=== PATIENT | female | born 1980 | race American Indian/Alaskan Native ===

== ENCOUNTER 2016-09-02 09:00 | Inpatient (IN) | payer OTHER ==
[2016-09-02 09:55] LABS: Hematocrit 32.9 % (30.3-42.9); Hemoglobin 10.5 gm/dl (10.1-14.3); Mean Corpuscular HGB Conc 32 % (30-34); Platelet Count 281 K/mm3 (140-440); Red Blood Count 4.85 M/mm3 (3.65-5.03); White Blood Count 5.2 K/mm3 (4.5-11.0)
[2016-09-02 10:02] LABS: Mean Corpuscular Hemoglobin 22 pg (28-32); Mean Corpuscular Volume 68 fl (79-97)
--- NOTE | 2016-09-02 10:06 | Anesthesia Consultation ---
Anesthesia Consult and Med Hx Date of service: 09/02/16 - Airway Anesthetic Teeth Evaluation: Good ROM Head & Neck: Adequate Mental/Hyoid Distance: Adequate Mallampati Class: Class II Intubation Access Assessment: Probably Good - Pulmonary Exam CTA: Yes - Cardiac Exam Cardiac Exam: RRR - Pre-Operative Health Status ASA Pre-Surgery Classification: ASA2 - Gastrointestinal Hx Gastroesophageal Reflux Disease: Yes - Hematic Hx Anemia: Yes (10.5/32.9) Hx Sickle Cell Disease: Yes (trait only) - Other Systems Hx Alcohol Use: Yes (occas)
[2016-09-02 12:17] LABS: Anisocytosis 3+; Blastocytes % (Manual) 0 %; Microcytosis 1+
[2016-09-02 12:18] LABS: Hypochromasia 2+; Tear Drop Cells 1+
[2016-09-02 12:19] LABS: Diff Status Complete
[2016-09-07] MEDS ORDERED: VERSED IV NR ×2 (07:00→10:00)
[2016-09-07] MEDS ORDERED: PEPCID PO NR (07:00)
[2016-09-07] MEDS ORDERED: NEURONTIN PO NR (10:00)
[2016-09-07] MEDS ORDERED: SUBLIMAZE IV ONE (11:00)
[2016-09-07] MEDS: LACTATED RINGERS 1,000 ML IV SCH ×2 (11:58→16:35)
[2016-09-07] MEDS ORDERED: ZOFRAN IV PRN ×2 (12:03→15:39)
--- NOTE | 2016-09-07 12:36 | Short Stay Summary ---
Short Stay Documentation Date of service: 09/07/16 Narrative H&P: C/O: Heavy vaginal bleeding 36 y/o G0 with above complaints and issues. She has had heavy vaginal bleeding x 2-3 yrs and is s/p 2 visits to [facility] for PR[facility] transfusion. Sono obtained at [facility] shows a 17 cm heterogeneous uterus with numerous fibroids. Anterior fibroid is 4 x 4 centimeters, posterior fibroid is 5 x 6 cm, and another anterior fibroid is 3 x 3 cm. Gynhx: Irregular cycles, no STDs Medhx: None Sughx: None Meds: Vitamins All:NKDA Fshx: Single, in same sex relationship [employer] by profession No family history of cancer Exam, a young black female in no acute distress Obese Abdominal exam benign Pelvic limited by habitus but unremarkable A: AUB/HMB-L P: -She desires a Myomectomy and declines a hysterectomy. We discussed risks of surgery in detail including risks of bleeding, infection and pain with her discussed risk of injury to surrounding organs and structures. Also discussed possible risk of hysterectomy, she asked that we preserve her ovaries if hysterectomy is needed. Questions were answered and she signed consent. -Proceed to the OR for abdominal myomectomy - History Past Medical History: No medical history Past Surgical History: No surgical history Social history: single, full code, no smoking, no alcohol abuse, no prescription drug abuse, no IV drug use - Allergies and Medications Current Medications: Allergies No Known Allergies Allergy (Unverified 08/27/16 14:08) Home Medications Medication Instructions Recorded Confirmed Last Taken Type Ferrous Sulfate [Feosol] 325 mg PO TID 08/27/16 08/27/16 Unknown History Active Medications Celecoxib (Celebrex) 200 mg PO PREOP NR Stop: 09/07/16 15:00 Last Admin: 09/07/16 11:59 Dose: 200 mg Famotidine (Pepcid) 20 mg PO PREOP NR Stop: 09/07/16 23:59 Last Admin: 09/07/16 11:59 Dose: 20 mg Gabapentin (Neurontin) 600 mg PO PREOP NR Stop: 09/07/16 15:00 Last Admin: 09/07/16 12:00 Dose: 600 mg Hydromorphone HCl (Dilaudid) 0.5 mg IV Q10MIN PRN PRN Reason: Pain , Severe (7-10) Stop: 09/07/16 23:59 Lactated Ringer's (Lactated Ringers) 1,000 mls @ 42 mls/hr IV DIRECT VERITO Last Admin: 09/07/16 11:58 Dose: 42 mls/hr Midazolam HCl (Versed) 2 mg IV PREOP NR Stop: 09/07/16 23:59 - Physical exam General appearance: no acute distress, obese Lungs: Clear to auscultation, Normal air movement Heart: Regular rate, Normal S1, Normal S2 Gastrointestinal: normal, normoactive bowel sounds, no hypoactive bowel sounds, no tenderness, no distended, no masses, no guarding Female Genitourinary: normal Extremities: no ischemia Neurological: Normal gait, Normal speech - Brief post op/procedure progress note Date of procedure: 09/07/16 Pre-op diagnosis: abnormal uterine bleeding/fibroid uterus Post-op diagnosis: same Procedure: abdominal myomectomy Findings: ~ 17 weeks size enlarged fibroid uterus Surgeon: CARIE SWENSON Supervisor Of Officials: BALWINDER UMANZOR Estimated blood loss: other (4 50 mL, 227 return via Cell Saver) Pathology: list (multiple fibroids) Specimen disposition: to lab Condition: stable - Hospital course Hospital course: uncomplicated postop course. Her blood pressure became elevated, she belatedly mentions a hx of HTN. She was started on labetalol 200 mg twice a day with good control.she is discharged on postoperative day #2 - Disposition Condition at discharge: Good Disposition: DC-[id number] TO HOME OR SELFCARE - Discharge Diagnoses (1) Status post myomectomy Status: Acute (2) HTN (hypertension) Status: Acute Qualifiers: Hypertension type: H (3) Abnormal uterine bleeding (AUB) Status: Acute (4) Fibroid (bleeding) (uterine) Status: Acute Qualifiers: Uterine leiomyoma location: U Short Stay Discharge Plan Activity: advance as tolerated Weight Bearing Status: Partial Weight Bearing (Not greater than 20 pounds) Diet: regular Wound: open to air Special Instructions: no heavy lifting Follow up with: RIVAS MARROQUIN MD [Primary Care Provider] - 7 Days CARIE SWENSON MD [Staff Physician] - 14 Days Prescriptions: Ibuprofen [Motrin 600 MG tab] 600 mg PO Q8H PRN #30 tablet PRN Reason: Pain Labetalol [Normodyne TAB] 200 mg PO BID #60 tablet Multivitamin with Iron [Multivitamins with Iron] 1 each PO DAILY #30 tablet oxyCODONE /ACETAMINOPHEN [Percocet 5/325] 1 tab PO Q6HR PRN #30 tablet PRN Reason: Pain
--- NOTE | 2016-09-07 12:49 | Anesthesia Day of Surgery ---
Anesthesia Day of Surgery - Day of Surgery Patient Examined: Yes Patient H&P Reviewed: Yes Patient is NPO: Yes
[2016-09-07] MEDS ORDERED: XYLOCAINE MPF 2% ONE (12:54)
[2016-09-07] MEDS ORDERED: DIPRIVAN 10 MG/ML IV ONE (12:54)
[2016-09-07] MEDS ORDERED: ZEMURON IV ONE (12:54)
[2016-09-07] MEDS ORDERED: SUBLIMAZE ONE (12:55)
[2016-09-07] MEDS ORDERED: ANCEF/STERILE WATER 2 GM/20 ML IV NR (13:00)
--- NOTE | 2016-09-07 13:15 | Admit Criteria Form ---
Admission Criteria Documentation: AMBULATORY SURGERY EXCEPTION CRITERIA Ambulatory Surgery Exception Criteria ( Place 'X' for any and all applicable criteria): Surgery or procedure performed on ambulatory basis may require inpatient stay for[A] ANY ONE of the following(1)(2)(3)(4)(5)(6)(7)(8)(9): [X] I. A preoperative situation, condition, or finding that warrants inpatient stay as indicated by ANY ONE of the following: [] a) Inpatient care needed because of severity of a disease or condition rather than the surgery (eg, severe cardiac or respiratory disease, severe infection) (15) (16 ) (17) (18) [] b) Emergent procedure (eg, angioplasty for acute ischemia)(19) [X] c) Complex surgical approach or situation as indicated by ANY ONE of the following(3): [X] i) Open approach needed instead of usual endoscopic, transcatheter, or other less invasive procedure [] ii) Difficult approach because of previous operation [] iii) Airway monitoring required after open neck procedures(20)(21) [] iv) Large mass requiring unusually extensive dissection [] v) Additional complicating feature requiring inpatient care (eg, drain management)(22(23): [] d) Major surgery in a pt with high anesthetic risk as indicated by ANY ONE of the following (2)(3)(5)(7)(8): [] i) ASA risk class III or higher (severe systemic disease impairing function) [D] [] ii) Advanced age (eg, older than 85 years)(14)(24) [] iii) Symptomatic heart failure(25) [] iv) Symptomatic asthma or COPD(8)(21) [] v) Morbid obesity with hemodynamic or respiratory problems(20)( 21)(26)(27) [] vi) Obstructive sleep apnea(20)(21) [] vii) Former premature infants who are younger than 60 weeks [] viii) High risk for severe postoperative abnormalities (eg, severe postoperative hypocalcemia after parathyroidectomy for severe hyperparathyroidism)(27)( 28) [] ix) Unstable angina(25) [] e) Drug-related risk requiring inpatient stay as indicated by ANY ONE of the following(5)(10)(14)(32)(33) [] i) Procedure requires discontinuing drugs or other therapy (eg , antiarrhythmic medication, antiseizure medication), which necessitates inpatient observation or treatment.(18)(31) [] ii) Major surgery and high risk drug use as indicated by ANY ONE of the following: [] 1) Active abuse of cocaine or similar drug [] 2) Monoamine oxidase inhibitor use [] 3) Other drug identified as posing risk [] f) Inadequate outpatient care situation as indicated by ANY ONE of the following(5)(10)(14)(32)(33) [] i) Patient lives remote from medical facility and procedure has urgent complication potential, and temporary nearby residence cannot be arranged [] ii) Patient will have postprocedure incapacitation and inadequate assistance at home, or alternative level of care cannot be arranged. [] iii) Patient will have long general anesthesia or procedure side effect resolution time, and competent person to stay with patient on first postoperative night at home or alternative level of care cannot be arranged. []iv) Other inadequate outpatient situation that cannot be handled by other means [] II. A perioperative event, condition, or finding that warrants inpatient stay as indicated by ANY ONE of the following (1)(2)(3): [] a) Inadequate physiologic recovery: cardiovascular, respiratory, or hemodynamic status not normal or near preoperative baseline(18) [] b) Hemodynamic instability [] c) Patient not alert with near normal or baseline mental status [] d) Temperature not normal or as expected and not appropriate for outpatient treatment of condition [] e) Ambulatory or appropriate activity level status not yet achieved post procedure [E](34)(35)(36) [] f) Operative site not appropriate (eg, unexpected or excessive drainage or bleeding) [] g) Postoperative effects not resolved or adequately managed (eg, significant pain or vomiting not appropriate for outpatient or next level of care)(10)(12) [] h) Complicating features requiring inpatient care as indicated by ANY ONE of the following(37): [] i) Severe complications of procedure (eg, bowel injury, airway compromise, vascular injury,severe hemorrhage) [] ii) Extensive (eg, dissection far beyond usual scope of procedure ) or prolonged (eg, 120 minutes beyond usual) surgery needed requiring inpatient postoperative care [] iii) Conversion to an open or complex procedure that requires inpatient care (eg, open vs laparoscopic cholecystectomy, abdominal vs vaginal hysterectomy)(38) [] iv) Comorbid condition or test result identified during or post procedure that requires inpatient care (7) [] v) Malignant hyperthermia(30) [] vi) Other complicating feature requiring inpatient care(22)(23) Inpatient stay may be needed until ALL of the following are present (1)(2)(3)(4) (5)(6)(10)(14)(33)(40): []a) Physiologic recovery: cardiovascular, respiratory, and hemodynamic status normal or near preoperative baseline []b) Hemodynamic stability []c) Patient alert, with near normal or baseline mental status []d) Temperature appropriate: patient afebrile or temperature appropriate for outpt treatment of condition []e) Activity level appropriate: ambulatory or appropriate activity level post procedure []f) Operative site appropriate as indicated by ALL of the following: []i) Site dry or with expected drainage []ii) Any blood noted is as expected for procedure. []g) Postoperative effects resolved or managed as indicated by ALL of the following: []i) Pain management appropriate for outpatient (or next level of) care(10) []ii) Minimal nausea and vomiting: if present, successfully treated with oral medication(12) []iii) Headache, dizziness, or drowsiness (if present) are mild. []h) Voiding status acceptable as indicated by ANY ONE of the following: []i) Voiding spontaneously []ii) No voiding but instructions given for follow-up in 6 to 8 hours []iii) Urinary catheter in place, and instructions given for follow-up []i) Complicating features requiring inpatient care manageable at a lower level of care(37) []j) Comorbid conditions manageable at a lower level of care(37) The original [employer] content created by [employer] has been revised. The portions of the content which have been revised are identified through the use of italic text or in bold, and [facility] has neither reviewed nor approved the modified material. All other unmodified content is copyright [employer]. Please see references footnoted in the original [employer] edition 2016 Admission Criteria Met: Yes
[2016-09-07] MEDS ORDERED: LACTATED RINGERS 1,000 ML ONE (13:34)
[2016-09-07] MEDS ORDERED: ACD-A 500 ML IV ONE (13:38)
[2016-09-07] MEDS ORDERED: NACL 0.9% 100 ML ONE (13:38)
[2016-09-07] MEDS ORDERED: DILAUDID ONE (13:48)
[2016-09-07] MEDS ORDERED: ZOFRAN ONE (14:12)
[2016-09-07] MEDS ORDERED: ROBINUL ONE (14:12)
[2016-09-07] MEDS ORDERED: NEOSTIGMINE ONE (14:12)
[2016-09-07] MEDS ORDERED: DECADRON ONE (14:12)
[2016-09-07] MEDS ORDERED: ACD-A IV ONE (14:41)
[2016-09-07] MEDS ORDERED: NACL 0.9% IR ONE (14:42)
[2016-09-07] MEDS ORDERED: NACL 0.9% 1000 ML 2,000 ML ONE (14:48)
[2016-09-07] MEDS ORDERED: NARCAN 0.4 MG/1 ML IV PRN (15:39)
[2016-09-07] MEDS ORDERED: TYLENOL PO PRN (15:39)
[2016-09-07] MEDS ORDERED: BENADRYL IV PRN (15:39)
--- NOTE | 2016-09-07 15:39 | Operative Report ---
Operative Report Operative Report: DATE: 09/07/2016 PREOPERATIVE DIAGNOSIS: Abnormal uterine bleeding, fibroid uterus POSTOP DIAGNOSIS: As above NAME OF PROCEDURE: Abdominal myomectomy SURGEON: CARIE SWENSON MD GROUTER HELPER: BROOKE UMANZOR ANESTHESIA: Gen. EBL:450 mL with 225 mL returned by Cell Saver PATHOLOGY SPECIMEN: 3 large fibroids (~ 10 cm, 5 and 6 cm), several small fibroids URINE OUTPUT: 175 mL FINDINGS: Multilobulated fibroid uterus DESCRIPTION OF PROCEDURE: After informed consent, patient is patient was taken to the operating room where she was prepped and draped in a sterile fashion. Pfannestial incision was performed 2 cm above the pubic symphysis. This was then carried down to the underlying rectus fascia which was scored in the midline. The fascial incision was extended laterally with the use of Tapia scissors, anterior leaf was then grasped with Jose Alfredo's elevated dissected sharply and bluntly off the underlying rectus. In a similar fashion the inferior leaf was grasped elevated dissected sharply and bluntly off the underlying rectus. The rectus was in the midline and the peritoneal cavity was entered without difficulty. After good visualization of the bladder the peritoneal layer was extended up and down. The uterus grasped and elevated and the pelvis onto the surgical field. Pitressen was injected into the serosa above the fibroids. Using Bovie, the serosa was incised until the fibroid was identified. It was grasped with single -tooth tenaculum and then using fingers manually and blunt edge of the scalpel the fibroids were dissected from their attachment. The fibroids were removed from the surgical field. The excised bed of the fibroids was then closed in 3 layers with Vicryl. A mattress suture was then used to close the serosa. Hemostasis was confirmed at each excision site. Irrigation was used to clear the pelvis of all clots and debris. Tisseel hemostatic agent was applied over incision sites and then Interceed was placed over the incisional sites as a means to prevent adhesions. The peritoneal edges were grasped with hemostats and Kristen's. The peritoneal layer was closed in a running fashion with 3-0 Vicryl; the rectus was reapproximated with a single [id number] stitch. The fascia was then closed in a running fashion with 0 Vicryl; the subcutaneous layer was reapproximated with a single [id number] stitch. The skin was then closed in a subcuticular manner with 4-0 Monocryl. She tolerated the procedure well lap and instrument counts were correct 2, she did receive 2 grams of Ancef prior to the procedure. She is transferred to PACU in stable condition.
[2016-09-07] MEDS ORDERED: D5LR 1,000 ML IV SCH (16:00)
[2016-09-07] MEDS ORDERED: NACL 0.9% 1000 ML 1,000 ML IV SCH (16:00)
[2016-09-07] MEDS ORDERED: MORPHINE PCA 30MG/30ML IV SCH (16:00)
[2016-09-07] MEDS: DILAUDID IV PRN ×2 (16:08→16:15)
[2016-09-07] MEDS: SENOKOT S PO SCH (22:30)
[2016-09-07] MEDS: PERCOCET 5/325 PO PRN (22:30)
[2016-09-08] MEDS: ZOFRAN IV PRN ×2 (00:42→18:16)
[2016-09-08] MEDS: PERCOCET 5/325 PO PRN ×5 (04:33→22:15)
[2016-09-08 06:18] LABS: Hematocrit 28.4 % (30.3-42.9); Hemoglobin 9.1 gm/dl (10.1-14.3)
--- NOTE | 2016-09-08 08:33 | Progress Note ---
Assessment and Plan POD# 1 s/p Abd Myomectomy -Doing well P: -Discontinue HORTICULTURAL THERAPIST and start oral meds -Will encourage ambulation -Start labetalol 200 mg twice a day -likely discharge in 24-48 hours - Patient Problems (1) Status post myomectomy Current Visit: Yes Status: Acute (2) HTN (hypertension) Current Visit: Yes Status: Acute Qualifiers: Hypertension type: H Subjective - Subjective Date of service: 09/08/16 Principal diagnosis: POD#1 s/p Abd myomectomy Interval history: patient seen and examined, stable doing well. No shortness of breath or chest pain, Fever or chills. She has not ambulated yet. Pain appears well controlled. Earlier tachycardia appears to have. Her blood pressure is elevated range ~ 130s to 150s over 70s to 90s, patient gives ablated history of hypertension about a year ago during a stressful emotional. Patient reports: appetite normal, voiding normally, pain well controlled, no ambulating normally, no nauseated Objective - Vital Signs Latest vital signs: Vital Signs Temp Pulse Pulse Resp BP BP Pulse Ox 09/08/16 05:55 98.6 F 114 H 20 151/93 09/08/16 01:13 98.8 F 101 H 20 140/80 09/07/16 22:09 95.0 F L 103 H 20 140/88 09/07/16 18:00 16 09/07/16 16:50 97.5 F L 87 18 153/89 09/07/16 16:30 98 F 88 14 140/89 100 09/07/16 16:15 88 12 135/87 100 09/07/16 16:08 14 09/07/16 16:00 83 13 142/87 100 09/07/16 15:45 75 13 136/88 100 09/07/16 15:40 76 14 131/84 09/07/16 15:35 78 16 130/78 100 09/07/16 15:32 97.8 F 74 18 137/75 100 09/07/16 11:30 98.7 F 87 17 150/99 98 Intake and Output 09/07/16 09/08/16 09/08/16 22:59 06:59 14:59 Intake Total 1775 970 Output Total 375 1700 Balance 1400 -730 Intake: IV 1775 750 D5lr 1,000 ml @ 125 mls/ 375 750 hr IV DIRECT VERITO Rx#: [id number] Lactated Ringers 1,000 ml 1000 @ 42 mls/hr IV DIRECT VERITO Rx#:[id number] Oral 220 Output: Urine 375 1700 Indwelling Catheter 200 1700 Other: Total, Intake Amount 220 Total, Output Amount 200 1700 Voiding Method Indwelling Catheter Indwelling Catheter - Exam Cardiovascular: Present: Regular rate Lungs: Present: Clear to auscultation Abdomen: Present: normal appearance, soft, normal bowel sounds. Absent: distention, tenderness, guarding, rigidity Uterus: Present: fundal height below umbilicus. Absent: tenderness Extremities: Present: normal Incision: Present: dry, intact - Labs Labs: Abnormal lab results 09/08/16 Range/Units 05:17 Hgb 9.1 L (10.1-14.3) gm/dl Hct 28.4 L (30.3-42.9) %
--- NOTE | 2016-09-08 08:36 | Post Anesthesia Evaluation ---
- Post Anesthesia Evaluation Patient Participated: Yes Airway Patent: Yes Stable Respiratory Function: Yes Nausea/Vomiting: No Temp > 96.8F: Yes Pain Manageable: Yes Adequeate Hydration: Yes Anesthesia Complications: No Block Receding Appropriately: Not Applicable Patient on Ventilator: No
[2016-09-08] MEDS: NORMODYNE PO SCH ×2 (09:45→22:14)
[2016-09-08] MEDS: SENOKOT S PO SCH ×2 (09:45→22:15)
[2016-09-09] MEDS: PERCOCET 5/325 PO PRN (06:01)
--- NOTE | 2016-09-09 06:35 | Progress Note ---
Assessment and Plan POD# 2 s/p Abd Myomectomy -Doing well P: -we'll discharge home at this time -Follow up in clinic in 1-2 weeks - Patient Problems (1) Status post myomectomy Current Visit: Yes Status: Acute (2) HTN (hypertension) Current Visit: Yes Status: Acute Qualifiers: Hypertension type: H Subjective - Subjective Date of service: 09/09/16 Principal diagnosis: POD#2 s/p Abd myomectomy Interval history: patient seen and examined, stable doing well. No shortness of breath or chest pain, Fever or chills. patient ambulating without difficulty, has adequate bowel bladder function. Pain well controlled Patient reports: appetite normal, voiding normally, pain well controlled, flatus , ambulating normally, no dizzy ambulation, no nauseated Objective - Vital Signs Latest vital signs: Vital Signs Temp Pulse Pulse Resp BP BP 09/09/16 04:15 98.6 F 82 18 136/81 09/09/16 00:00 98.8 F 88 20 137/83 09/08/16 22:14 72 140/80 09/08/16 20:00 98.2 F 88 20 140/80 09/08/16 16:00 98.2 F 88 20 134/80 09/08/16 12:19 98.3 F 92 H 18 142/80 09/08/16 07:15 97.9 F 84 18 144/89 Intake and Output 09/08/16 09/08/16 09/09/16 14:59 22:59 06:59 Intake Total 240 240 120 Balance 240 240 120 Intake: Oral 240 240 120 Other: Total, Intake Amount 240 240 120 Voiding Method Toilet # Voids Void 200 1 1 - Exam Abdomen: Present: normal appearance, soft, normal bowel sounds. Absent: distention, tenderness, guarding, rigidity Uterus: Present: firm Extremities: Present: normal Incision: Present: dry, intact
[2016-09-09 09:49] VITALS: BP 132/78
== END 2016-09-09 09:00 | disposition home or self-care (01) | DRG 743 ==
LOC: 3A 09-07 11:01 → OB 09-07 15:54
PROVIDERS: ADMIT Obstetrics & Gynecology Gynecology; ATTEND Obstetrics & Gynecology Gynecology
PROC: 0UB90ZZ Excision of Uterus, Open Approach (ICD-10-PCS; principal; 2016-09-07)
DX: D25.9 Leiomyoma of uterus, unspecified (principal); K21.9 Gastro-esophageal reflux disease without esophagitis; E66.9 Obesity, unspecified; Z68.32 Body mass index [BMI] 32.0-32.9, adult
CPT/HCPCS: 36415; 84703; 85007; 85014; 85018; 85025; 86850; 86900; 86901; 88305; C1765; J0690; J1100; J1170; J2250; J2270; J2405; J2704; J2710; J3010; J7030; J7120; J7121

== ENCOUNTER 2016-09-28 19:09 | Emergency (ER) | payer OTHER ==
[2016-09-28 20:22] LABS: Hematocrit 31.2 % (30.3-42.9); Hemoglobin 10.2 gm/dl (10.1-14.3); Mean Corpuscular HGB Conc 33 % (30-34); Platelet Count 463 K/mm3 (140-440); Red Blood Count 4.51 M/mm3 (3.65-5.03); White Blood Count 6.6 K/mm3 (4.5-11.0)
[2016-09-28 20:23] LABS: Mean Corpuscular Volume 69 fl (79-97)
[2016-09-28 20:24] LABS: Mean Corpuscular Hemoglobin 23 pg (28-32); Red Cell Distribution Width 28.8 % (13.2-15.2)
[2016-09-28 20:45] LABS: Alanine Aminotransferase 31 units/L (7-56); Albumin 4.3 g/dL (3.9-5); Albumin/Globulin Ratio 1.2 %; Alkaline Phosphatase 62 units/L (35-129); Anion Gap 28 mmol/L; BUN/Creatinine Ratio 21.42; Blood Urea Nitrogen 15 mg/dL (7-17); Calcium 9.2 mg/dL (8.4-10.2); Carbon Dioxide 15 mmol/L (22-30); Chloride 98.4 mmol/L (98-107); Glucose 131 mg/dL (65-100); Lipase 53 units/L (13-60); Potassium 3.8 mmol/L (3.6-5.0); Sodium 138 mmol/L (137-145); Total Protein 7.8 g/dL (6.3-8.2)
[2016-09-28 21:15] LABS: Basophils % (Manual) 0 % (0.0-1.8); Blastocytes % (Manual) 0 %
[2016-09-28 21:16] LABS: Anisocytosis 1+; Diff Status Complete; Elliptocytes 1+; Platelet Estimate Consistent w Auto
[2016-09-28 21:18] LABS: Bilirubin,Urine NEG (Negative); Blood,Urine LG (Negative); Ketones,Urine NEG (Negative); Leukocyte Esterase,Urine TR (Negative); Mucus,Urine FEW /HPF; Nitrite,Urine NEG (Negative); Urobilinogen,Urine < 2.0 mg/dL (<2.0)
[2016-09-28 21:19] LABS: RBC,Urine > 182.0 /HPF (0.0-6.0)
[2016-09-29] MEDS ORDERED: MACROBID PO ONE (01:21)
[2016-09-29] MEDS ORDERED: MORPHINE IV ONE ×2 (01:37→04:11)
--- NOTE | 2016-09-29 01:48 | Emergency Department Report ---
HPI - General Chief Complaint: Vaginal Bleeding Time Seen by Provider: 09/29/16 01:08 - HPI HPI: This is a 36-year-old Afro[place] female presents to the emergency department with a 3 or 4 day history of lower abdominal and/or pelvic cramping pains and heavy vaginal bleeding. The patient had a myomectomy done at the end of August by Dr. Porter. She says that she was made aware that there will be still some pain and vaginal bleeding but eventually it should slower up or reduce. She did have this occur but on Tuesday, 4 days ago, the pain and vaginal bleeding increase. She says that she is changing a pad about every 45 minutes. She called her JUVENILE OFFICER office and was told to come to the emergency department. She is not taken anything for symptoms prior to presentation. No recent travel or sick contacts at home. She otherwise has a past medical history of GERD, sickle cell trait. ED Past Medical Hx - Past Medical History Previous Medical History?: Yes Hx GERD: Yes Hx Sickle Cell Disease: Yes (trait only) Hx HIV: No - Surgical History Past Surgical History?: Yes Additional Surgical History: Myomectomy - 09/09/16 - Social History Smoking Status: Never Smoker Substance Use Type: None - Medications Home Medications: Home Medications Medication Instructions Recorded Confirmed Last Taken Type Ferrous Sulfate [Feosol] 325 mg PO TID 08/27/16 08/27/16 Unknown History Ibuprofen [Motrin 600 MG tab] 600 mg PO Q8H PRN #30 tablet 09/07/16 Unknown Rx Multivitamin with Iron 1 each PO DAILY #30 tablet 09/07/16 Unknown Rx [Multivitamins with Iron] oxyCODONE /ACETAMINOPHEN [Percocet 1 tab PO Q6HR PRN #30 tablet 09/07/16 Unknown Rx 5/325] Labetalol [Normodyne TAB] 200 mg PO BID #60 tablet 09/08/16 Unknown Rx HYDROcodone/APAP 5-325 [[place] 1 each PO Q6HR PRN #12 tablet 09/29/16 Unknown Rx 5/325] Nitrofurantoin [place]/M-Cryst 100 mg PO Q12HR #14 capsule 09/29/16 Unknown Rx [Macrobid CAP] ED Review of Systems ROS: Stated complaint: S/P SURGERY/EXCESSIVE BLEEDING Other details as noted in HPI Comment: All other systems reviewed and negative Constitutional: denies: chills, fever Eyes: denies: eye pain, eye discharge, vision change ENT: denies: ear pain, throat pain Respiratory: denies: cough, shortness of breath, wheezing Cardiovascular: denies: chest pain, palpitations Gastrointestinal: abdominal pain. denies: nausea, vomiting Genitourinary: other (vaginal bleeding). denies: dysuria, discharge Musculoskeletal: denies: joint swelling, arthralgia Skin: denies: rash, lesions Neurological: denies: headache, weakness, paresthesias Physical Exam - Physical Exam Vital Signs: Vital Signs 09/28/16 09/29/16 09/29/16 19:55 01:16 01:17 Temperature 98.9 F 97.6 F Pulse Rate 102 H 83 Respiratory 14 18 18 Rate Blood Pressure 144/104 164/105 [Right] O2 Sat by Pulse 100 100 100 Oximetry Physical Exam: GENERAL: The patient is well-developed well-nourished. HEENT: Normocephalic. Atraumatic. Extraocular motions are intact. Patient has moist mucous membranes. Pupils equal reactive to light bilaterally. NECK: Supple. Trachea is midline. CHEST/LUNGS: Clear to auscultation. There is no respiratory distress noted. HEART/CARDIOVASCULAR: Regular. There is no tachycardia. There is no gallop rub or murmur. ABDOMEN: Abdomen is soft, nontender. Patient has normal bowel sounds. There is no abdominal distention. SKIN: Skin is warm and dry. NEURO: The patient is awake, alert, and oriented. The patient is cooperative. The patient has no focal neurologic deficits. The patient has normal speech. MUSCULOSKELETAL: There is no tenderness or deformity. There is no limitation range of motion. There is no evidence of acute injury. : There is a mild to moderate amount of dark red blood seen in the vaginal vault. ED Course Vital Signs 09/28/16 09/29/16 09/29/16 19:55 01:16 01:17 Temperature 98.9 F 97.6 F Pulse Rate 102 H 83 Respiratory 14 18 18 Rate Blood Pressure 144/104 164/105 [Right] O2 Sat by Pulse 100 100 100 Oximetry - Consultations Consultation #1: I spoke with the patient's JUVENILE OFFICER, Dr. porter, who agrees with pain control and follow-up with him in the next few days. 09/29/16 04:05 ED Medical Decision Making - Lab Data Result diagrams: 09/28/16 20:08 09/28/16 20:08 - Radiology Data Radiology results: report reviewed Transvaginal/pelvic ultrasound shows a 6 cm anterior uterine mass consistent with a fibroid. - Medical Decision Making 36-year-old female presents the emergency department with some pelvic pain/ cramping as well as some increased vaginal bleeding over the past few days. She has a history of multiple fibroid removals done a few weeks ago by Dr. porter. She was told to follow-up in the emergency department when she called today about her symptoms. Labs are mostly unremarkable and there does not show a any significant anemia. There are no signs of infection in the blood but she has a mild urinary tract infection. She was given Macrobid. Ultrasound shows a 6 and made her anterior fibroid which could be the source of her pain and bleeding. Pelvic exam does not show any significant amount of bleeding at this time and certainly no hemorrhage. I spoke with Dr. porter who agrees with pain control and follow-up. - Differential Diagnosis , fibroid, malignancy, ovarian cyst Critical Care Time: No Critical care attestation.: If time is entered above; I have spent that time in minutes in the direct care of this critically ill patient, excluding procedure time. ED Disposition Clinical Impression: Abnormal uterine bleeding (AUB) Fibroid (bleeding) (uterine) Qualifiers: Uterine leiomyoma location: unspecified location Qualified Code(s): D25.9 - Leiomyoma of uterus, unspecified Fibroid Qualifiers: Uterine leiomyoma location: unspecified location Qualified Code(s): D25.9 - Leiomyoma of uterus, unspecified Disposition: DC-01 TO HOME OR SELFCARE Is pt being admited?: No Condition: Stable Instructions: Uterine Fibroids (ED) Additional Instructions: Please follow-up with Dr. porter in the next few days. Return to the emergency department with any worsening of your symptoms or any acute distress. You've been prescribed a medication that is sedating. Therefore this medication cannot be mixed with alcohol, or taken prior to driving, working, or being responsible for children. Prescriptions: HYDROcodone/APAP 5-325 [[place] 5/325] 1 each PO Q6HR PRN #12 tablet PRN Reason: Pain Nitrofurantoin [place]/M-Cryst [Macrobid CAP] 100 mg PO Q12HR #14 capsule Referrals: PRIMARY CAREMD [Primary Care Provider] - 3-5 Days CARIE SWENSON MD [Staff Physician] - 3-5 Days Time of Disposition: 04:08
--- NOTE | 2016-09-29 03:09 | Ultrasound Report ---
FINAL REPORT PROCEDURE: Ultrasound transabdominal and transvaginal pelvic, Doppler imaging is performed TECHNIQUE: Real-time transabdominal sonography in multiple planes of the pelvis was performed. The pelvic structures were not optimally visualized. Transvaginal sonography was then performed to better evaluate the structures and/or abnormalities described below with image documentation. Grayscale, color flow Doppler imaging and velocity spectral waveform analysis of the ovaries was employed (duplex imaging). CPT 16847, 91948, and 77471 HISTORY: pelvic pain s/p myomectomy COMPARISON: No prior studies are available for comparison. FINDINGS: UTERUS Size: 9.6 x 7 x 8 6 cm. Endometrial thickness: 8 mm. Orientation: anteverted. Cervix: Normal. Fibroids/masses: Complex mass mid uterine myometrium measures 5.7 x 3.8 x 6 centimeters. This may represent a large fibroid.. RIGHT Ovary: 3.1 x 1.3 x 2 cm. Appearance: Normal. Doppler images: Normal spectral waveforms and color flow. The systolic and diastolic velocities are within normal limits. LEFT Ovary: 3 x 2 x 3 cm. Appearance: Normal. Doppler images: Normal spectral waveforms and color flow. The systolic and diastolic velocities are within normal limits. Pelvic fluid: Minimal. Other: None. IMPRESSION: There is a mass in the anterior uterine myometrium measuring up to 6 centimeters. A large fibroid is suspected. Further differentiation with MRI may be appropriate. Both ovaries have normal appearance. Minimal fluid in the lower pelvis is noted.
--- NOTE | 2016-09-29 03:09 | Ultrasound Report ---
FINAL REPORT PROCEDURE: US TRANSVAGINAL TECHNIQUE: Real-time transabdominal sonography in multiple planes of the pelvis was performed. The pelvic structures were not optimally visualized. Transvaginal sonography was then performed to better evaluate the structures and/or abnormalities described below with image documentation. Grayscale, color flow Doppler imaging and velocity spectral waveform analysis of the ovaries was employed (duplex imaging). CPT 74949, 53195, and 35148 HISTORY: pelvic pain s/p myomectomy COMPARISON: No prior studies are available for comparison. FINDINGS: UTERUS Size: 9.6 x 7 x 8 6 cm. Endometrial thickness: 8 mm. Orientation: anteverted. Cervix: Normal. Fibroids/masses: Complex mass mid uterine myometrium measures 5.7 x 3.8 x 6 centimeters. This may represent a large fibroid.. RIGHT Ovary: 3.1 x 1.3 x 2 cm. Appearance: Normal. Doppler images: Normal spectral waveforms and color flow. The systolic and diastolic velocities are within normal limits. LEFT Ovary: 3 x 2 x 3 cm. Appearance: Normal. Doppler images: Normal spectral waveforms and color flow. The systolic and diastolic velocities are within normal limits. Pelvic fluid: Minimal. Other: None. IMPRESSION: There is a mass in the anterior uterine myometrium measuring up to 6 centimeters. A large fibroid is suspected. Further differentiation with MRI may be appropriate. Both ovaries have normal appearance. Minimal fluid in the lower pelvis is noted.
[2016-09-29 04:35] VITALS: BP 135/89
== END 2016-09-29 04:36 | disposition home or self-care (01) ==
LOC: ED 19:09
DX: N93.8 Other specified abnormal uterine and vaginal bleeding (principal); D25.9 Leiomyoma of uterus, unspecified; K21.9 Gastro-esophageal reflux disease without esophagitis; D57.3 Sickle-cell trait
CPT/HCPCS: 36415; 76830; 80053; 81001; 83690; 84703; 85007; 85025; 86850; 86900; 86901; 93975; 96374; 96376; 99284; J2270

== ENCOUNTER 2017-08-02 16:29 | Emergency (ER) | payer OTHER ==
[2017-08-02 18:07] VITALS: BP 154/102
[2017-08-02 19:21] LABS: Basophils # (Auto) 0.1 K/mm3 (0.0-0.1); Basophils % (Auto) 1.2 % (0.0-1.8); Eosinophils # (Auto) 0.1 K/mm3 (0.0-0.4); Eosinophils % (Auto) 1.2 % (0.0-4.3); Hematocrit 31.6 % (30.3-42.9); Hemoglobin 9.9 gm/dl (10.1-14.3); Lymphocytes # (Auto) 1.7 K/mm3 (1.2-5.4); Lymphocytes % (Auto) 29.1 % (13.4-35.0); Mean Corpuscular HGB Conc 31 % (30-34); Monocytes # (Auto) 0.3 K/mm3 (0.0-0.8); Monocytes % (Auto) 5.3 % (0.0-7.3); Platelet Count 410 K/mm3 (140-440); Red Blood Count 5.04 M/mm3 (3.65-5.03); Red Cell Distribution Width 19.2 % (13.2-15.2)
[2017-08-02 19:28] LABS: Mean Corpuscular Hemoglobin 20 pg (28-32); Mean Corpuscular Volume 63 fl (79-97)
[2017-08-02 19:43] LABS: Alanine Aminotransferase 19 units/L (7-56); Albumin 4.6 g/dL (3.9-5); BUN/Creatinine Ratio 20; Blood Urea Nitrogen 10 mg/dL (7-17); Hemolysis Index 31; Lipase 50 units/L (13-60)
[2017-08-02 20:03] LABS: Bilirubin,Urine NEG (Negative); Blood,Urine NEG (Negative); Color,Urine Yellow (Yellow); Mucus,Urine FEW /HPF; Urobilinogen,Urine < 2.0 mg/dL (<2.0)
[2017-08-02 20:13] LABS: HCG Qualitative,Urine Negative (Negative)
== END 2017-08-02 21:07 | disposition left against medical advice (07) ==
LOC: ED 16:29
DX: Z53.21 Procedure and treatment not carried out due to patient leaving prior to being seen by health care provider (principal)
CPT/HCPCS: 36415; 80053; 81001; 81025; 83690; 85025

== ENCOUNTER 2017-11-08 11:46 | Observation (INO) | payer OTHER ==
[2017-11-07 10:20] LABS: Basophils # (Auto) 0.1 K/mm3 (0.0-0.1); Eosinophils # (Auto) 0.1 K/mm3 (0.0-0.4); Eosinophils % (Auto) 0.9 % (0.0-4.3); Hematocrit 31.8 % (30.3-42.9); Hemoglobin 10.3 gm/dl (10.1-14.3); Lymphocytes # (Auto) 1.7 K/mm3 (1.2-5.4); Lymphocytes % (Auto) 22.4 % (13.4-35.0); Mean Corpuscular HGB Conc 32 % (30-34); Monocytes # (Auto) 0.4 K/mm3 (0.0-0.8); Monocytes % (Auto) 4.8 % (0.0-7.3); Platelet Count 330 K/mm3 (140-440); Red Blood Count 4.87 M/mm3 (3.65-5.03)
[2017-11-07 10:26] LABS: Mean Corpuscular Hemoglobin 21 pg (28-32); Mean Corpuscular Volume 65 fl (79-97); Red Cell Distribution Width 20.6 % (13.2-15.2)
--- NOTE | 2017-11-07 10:44 | Anesthesia Consultation ---
<MICAH WILDER - Last Filed: 11/07/17 10:43> Anesthesia Consult and Med Hx Date of service: 11/07/17 - Airway Anesthetic Teeth Evaluation: Good ROM Head & Neck: Adequate Mental/Hyoid Distance: Adequate Mallampati Class: Class II Intubation Access Assessment: Probably Good - Pre-Operative Health Status ASA Pre-Surgery Classification: ASA2 Proposed Anesthetic Plan: General Nerve Block: TAP - Pulmonary Hx Smoking: Yes (Vapes) - Central Nervous System Hx Psychiatric Problems: No - Gastrointestinal Hx Gastroesophageal Reflux Disease: Yes - Hematic Hx Anemia: Yes Hx Sickle Cell Disease: Yes (trait only) - Other Systems Hx Alcohol Use: Yes (Occas) Hx Cancer: No <GISELE DOUGLASS - Last Filed: 11/08/17 12:45> Anesthesia Consult and Med Hx - Pre-Operative Health Status Nerve Block: TAP (declined)
[~2017-11-08 11:46] MED LIST: LACTATED RINGERS 1,000 ML IV SCH; MARCAINE 0.5% INFILTRATI NR; NACL P/F VIAL (10 ML) INFILTRATI NR; PEPCID IV NR; SUBLIMAZE IV SCH; VERSED IV NR; XYLOCAINE 1% 20 mL INFILTRATI NR
--- NOTE | 2017-11-08 12:44 | Anesthesia Day of Surgery ---
Anesthesia Day of Surgery - Day of Surgery Patient Examined: Yes Patient H&P Reviewed: Yes Patient is NPO: Yes
[2017-11-08] MEDS ORDERED: NEURONTIN PO NR (13:00)
--- NOTE | 2017-11-08 13:31 | History and Physical Report ---
History of Present Illness Date of examination: 11/08/17 Chief complaint: Symptomatic uterine fibroids History of present illness: Pt is a 37yo BF G0 LMP 10/10/17 presents for surgical evaluation and treatment of uterine fibroids. She had a previous myomectomy, but still complains of prolonged heavy vaginal bleeding despite hormonal and surgical therapy. She does NOT desire fertility and now desires a Robotic Assisted Total Hysterectomy with ovarian conservation. Past History Past Medical History: no pertinent history Past Surgical History: myomectomy, other (oral surgery) PSYCHOLOGIST COUNSELING History: fibroids Social history: no significant social history, single Medications and Allergies Allergies Allergy/AdvReac Type Severity Reaction Status Date / Time No Known Allergies Allergy Unverified 11/04/17 09:33 Home Medications Medication Instructions Recorded Confirmed Last Taken Type Ferrous Sulfate [Feosol] 325 mg PO TID 08/27/16 11/08/17 11/06/17 History Active Meds: Active Medications Bupivacaine HCl (Marcaine 0.5%) 20 ml INFILTRATI PREOP NR Stop: 11/08/17 23:01 Celecoxib (Celebrex) 200 mg PO PREOP NR Stop: 11/08/17 23:59 Famotidine (Pepcid) 20 mg IV PREOP NR Stop: 11/08/17 23:01 Fentanyl (Sublimaze) 100 mcg IV ONCE VERITO Stop: 11/08/17 23:01 Gabapentin (Neurontin) 300 mg PO PREOP NR Stop: 11/08/17 23:59 Hydromorphone HCl (Dilaudid) 0.5 mg IV Q10MIN PRN PRN Reason: Pain , Severe (7-10) Stop: 11/08/17 23:59 Lactated Ringer's (Lactated Ringers) 1,000 mls @ 100 mls/hr IV DIRECT VERITO Lidocaine (Xylocaine 1% 20 Ml) 10 ml INFILTRATI PREOP NR Stop: 11/08/17 23:01 Midazolam HCl (Versed) 2 mg IV PREOP NR Stop: 11/08/17 23:59 Sodium Chloride (Nacl P/F Vial (10 Ml)) 1 ml INFILTRATI PREOP NR Stop: 11/08/17 23:01 Review of Systems All systems: negative - Vital Signs Vital signs: Vital Signs Temp Pulse Resp BP 98.6 F 80 18 140/84 11/07/17 10:00 11/07/17 10:00 11/07/17 10:00 11/07/17 10:00 Temp Pulse Resp BP Pulse Ox 98.6 F 80 18 140/84 11/07/17 10:00 11/07/17 10:00 11/07/17 10:00 11/07/17 10:00 - Physical Exam Breasts: Positive: deferred Cardiovascular: Regular rate Lungs: Positive: Clear to auscultation Abdomen: Positive: normal appearance, soft Genitourinary (Female): Positive: normal external genitalia Uterus: Positive: enlarged Extremities: Positive: normal Results Result Diagrams: 11/07/17 10:10 All other labs normal. Ultrasound: report reviewed Assessment and Plan - Patient Problems (1) Uterine fibroid Onset Date: 11/08/17 Current Visit: Yes Status: Acute Qualifiers: Uterine leiomyoma location: intramural and submucous Qualified Code(s): D25.1 - Intramural leiomyoma of uterus; D25.0 - Submucous leiomyoma of uterus Plan to address problem: A: Symptomatic uterine fibroids Menorrhagia - most likely due to uterine fibroids Anemia P: Admit for a Robotic Assisted Total Hysterectomy with Bilateral salpingectomy (2) Menorrhagia with irregular cycle Onset Date: 11/08/17 Current Visit: Yes Status: Acute
[2017-11-08] MEDS ORDERED: ZOFRAN ONE (13:52)
[2017-11-08] MEDS ORDERED: ZEMURON IV ONE (13:52)
[2017-11-08] MEDS ORDERED: QUELICIN ONE (13:52)
[2017-11-08] MEDS ORDERED: XYLOCAINE MPF 2% ONE (13:52)
[2017-11-08] MEDS ORDERED: DIPRIVAN 10 MG/ML IV ONE (13:53)
[2017-11-08] MEDS ORDERED: VERSED ONE (13:53)
[2017-11-08] MEDS ORDERED: SUBLIMAZE ONE (13:53)
[2017-11-08] MEDS ORDERED: REGLAN ONE (14:00)
[2017-11-08] MEDS ORDERED: ANCEF/STERILE WATER 2 GM/20 ML 2 GM/20 ML SYRINGE IV SCH (14:00)
[2017-11-08] MEDS ORDERED: NEOSPORIN GU IR ONE ×2 (14:21→15:07)
[2017-11-08] MEDS ORDERED: MARCAINE 0.5% 30 ML INFILTRATI ONE (14:21)
[2017-11-08] MEDS ORDERED: LACTATED RINGERS 1,000 ML ONE (14:47)
[2017-11-08] MEDS ORDERED: NACL 0.9% IR ONE ×2 (15:07→15:08)
[2017-11-08] MEDS ORDERED: MARCAINE 0.5% INFILTRATI ONE (15:08)
[2017-11-08] MEDS ORDERED: TORADOL ONE (15:15)
[2017-11-08] MEDS ORDERED: DECADRON ONE (15:15)
[2017-11-08] MEDS ORDERED: BLOXIVERZ ONE (15:24)
[2017-11-08] MEDS ORDERED: ROBINUL ONE (15:24)
[2017-11-08] MEDS ORDERED: DILAUDID ONE ×2 (15:43→16:26)
[2017-11-08] MEDS ORDERED: MORPHINE PCA 30MG/30ML IV ONE (15:46)
[2017-11-08] MEDS ORDERED: D5LR 1,000 ML IV ONE (15:47)
[2017-11-08] MEDS ORDERED: TYLENOL PO PRN (15:49)
[2017-11-08] MEDS ORDERED: NARCAN 0.4 MG/1 ML IV PRN (15:49)
[2017-11-08] MEDS ORDERED: ZOFRAN IV PRN (15:49)
[2017-11-08] MEDS ORDERED: PERCOCET 5/325 PO PRN (15:49)
[2017-11-08] MEDS ORDERED: MILK OF MAGNESIA PO PRN (15:49)
[2017-11-08] MEDS ORDERED: NORCO 5/325 PO PRN (15:49)
[2017-11-08] MEDS ORDERED: BENADRYL IV PRN (15:49)
[2017-11-08] MEDS ORDERED: MORPHINE PCA 30MG/30ML IV SCH (16:00)
--- NOTE | 2017-11-08 16:00 | Operative Report ---
Operative Report Operative Report: Date of procedure: 11/08/2017 Pre-operative diagnosis: 1. Symptomatic uterine fibroids 2. Menorrhagia Post-operative diagnosis: Same Procedure name(s): 1. Robotic-assisted total hysterectomy 2. Bilateral salpingectomy Surgeon: Mau Snell MD Dietitian Therapeutic: Qian Mckeon CSA Anesthesia: Gen. endotracheal intubation by Dr. Iqbal EBL: 50 mL's Findings: A 12-14 weeks' size uterus with multiple fibroids. Normal tubes and ovaries bilaterally. Procedure: After the patient's first correctly identified she was prepped and draped in the usual sterile fashion and placed in the dorsolithotomy position. The bladder was first catheterized using Koenig catheter and the speculum was placed in the vagina and the anterior lip of the cervix was grasped using a single-tooth tenaculum, and the medium Vesicare cup was placed. The tenaculum and speculum was then removed from the vagina and attention was then turned to the abdomen. The skin knife was used to make a small incision approximately 5 cm above the umbilicus through which a 12 mm trocar was placed under direct visualization. After adequate amount of abdominal insufflation visualization of the pelvic organs found the uterus to be enlarged and the tubes and ovaries are found to be normal bilaterally. A right and left paramedian incision was made through which the 8 mm trochars were placed under direct visualization and a 5 mm trocar was placed in the right lower quadrant. The patient was then placed in steep Trendelenburg positioning and the robot was docked on the patient's left side. After all the robotic ports were connected and adequate functioning of the robotic arms were tested the surgeon then proceeded to the console to begin the hysterectomy. First the left round ligament was grasped, cauterized and cut, the left utero- ovarian ligaments were grasped, cauterized and cut, and the left fallopian tube also grasped, cauterized and cut along the mesosalpinx thus freeing the left ovary from the left uterine sidewall. The same procedure was performed on the right. The right round ligament was grasped, cauterized and cut, the right utero-ovarian ligaments were grasped, cauterized and cut, and the right fallopian tube also grasped, cauterized and cut along the mesosalpinx thus freeing the right ovary from the right uterine sidewall. The bladder flap was taken down anteriorly and the uterine vessels were grasped, cauterized and cut bilaterally. The cardinal ligaments were sequentially grasped, cauterized and cut down to the level of the uterosacral ligaments. At this time the posterior colpotomy was performed over the Vcare cup, and the cervix was circumscribed beginning posteriorly and meeting anteriorly until the cervix was freed. The cervix and uterus was then removed through the vagina and sent to pathology. The vaginal cuff was then closed using 2-0 Vloc suture in a running fashion. Irrigation was then performed and after good hemostasis was achieved the procedure was considered complete. The Tisseel sealant was then sprayed across the vaginal cuff site, and after excellent hemostasis was assured Interceed was placed across the vaginal cuff site. All instruments were then removed from the abdominal cavity. And each incision was closed using 0 Vicryl suture in a [id number] configuration on the fascia followed by 4-0 Monocryl suture in a sub-cuticular fashion on the skin. Each incision was also infiltrated using 0.5% Marcaine solution. The vaginal pack was removed. The patient tolerated the procedure well and was transported to the recovery room in stable condition.
[2017-11-08] MEDS: DILAUDID IV PRN ×2 (16:26→16:40)
[2017-11-08] MEDS ORDERED: NACL 0.9% 1000 ML 1,000 ML IV SCH (17:00)
[2017-11-08] MEDS ORDERED: D5LR 1,000 ML IV SCH (17:30)
[2017-11-08] MEDS: TORADOL IV SCH (21:52)
[2017-11-08] MEDS: ANCEF/NS 1 GM/50 ML 1 GM/50 ML BAG IV SCH (21:59)
[2017-11-08] MEDS: COLACE PO SCH (22:00)
[2017-11-09] MEDS: TORADOL IV SCH ×2 (03:16→09:07)
[2017-11-09 05:05] LABS: Hematocrit 30.2 % (30.3-42.9); Hemoglobin 9.9 gm/dl (10.1-14.3)
[2017-11-09] MEDS: ANCEF/NS 1 GM/50 ML 1 GM/50 ML BAG IV SCH (06:19)
--- NOTE | 2017-11-09 08:49 | Progress Note ---
Assessment and Plan - Patient Problems (1) Uterine fibroid Onset Date: 11/08/17 Current Visit: Yes Status: Resolved Qualifiers: Uterine leiomyoma location: intramural and submucous Qualified Code(s): D25.1 - Intramural leiomyoma of uterus; D25.0 - Submucous leiomyoma of uterus (2) Menorrhagia with irregular cycle Onset Date: 11/08/17 Current Visit: Yes Status: Resolved (3) Status post robot-assisted surgical procedure Onset Date: 11/09/17 Current Visit: Yes Status: Resolved Plan to address problem: A: S/P RATH - POD #1 Doing well Asymptomatic anemia - stable P: May go home today. Subjective - Subjective Date of service: 11/09/17 Principal diagnosis: s/p RATH - POD #1 Interval history: Pt is s/p a Robotic Assisted Total Hysterectomy and feeling well. She is tolerating a liquid diet without nausea or vomiting, ambulating and voiding without difficulty. Patient reports: appetite normal, voiding normally, pain well controlled, flatus , ambulating normally, no dizzy ambulation, no nauseated Objective - Vital Signs Latest vital signs: Vital Signs Temp Pulse Resp BP BP Pulse Ox 11/09/17 06:45 20 11/09/17 04:45 20 11/09/17 04:10 98.0 F 86 20 145/73 98 11/09/17 02:45 18 11/09/17 00:45 18 11/09/17 00:00 98.2 F 83 18 144/88 96 11/08/17 22:45 18 11/08/17 21:48 16 11/08/17 20:45 16 11/08/17 20:15 98.2 F 102 H 20 142/81 98 11/08/17 18:45 16 11/08/17 17:20 97.8 F 86 16 141/79 95 11/08/17 17:10 98.4 F 89 14 144/87 99 11/08/17 16:40 14 11/08/17 16:30 87 12 151/84 100 11/08/17 16:26 14 11/08/17 16:15 77 12 148/90 100 11/08/17 16:10 77 13 146/88 96 11/08/17 16:05 76 15 145/84 100 11/08/17 16:02 97.2 F L 82 17 146/87 100 11/08/17 12:25 98.2 F 78 12 147/86 100 Intake and Output 11/08/17 11/09/17 11/09/17 22:59 06:59 14:59 Intake Total 200 1290 1050 Output Total 620 1000 Balance -219 065 9153 Intake: IV 200 1050 1050 ANCEF/NS 1 GM/50 ML 1 gm 50 50 In 50 ml @ 100 mls/hr IV Q8H VERITO Rx#:[id number] D5lr 1,000 ml @ 125 mls/ 1000 hr IV DIRECT VERITO Rx#: [id number] Lactated Ringers 1,000 ml 1000 @ 100 mls/hr IV DIRECT VERITO Rx#:[id number] Oral 240 Output: Urine 620 1000 Indwelling Catheter 100 1000 Uretheral (Koenig) 110 Other: Intake, Other Source Saline Solution Total, Intake Amount 240 Total, Output Amount 100 1000 Voiding Method Indwelling Catheter - Exam Breasts: Present: deferred Cardiovascular: Present: Regular rate Lungs: Present: Clear to auscultation Abdomen: Present: normal appearance Extremities: Present: normal Incision: Present: normal, dry, intact - Labs Labs: Abnormal lab results 11/09/17 Range/Units 04:30 Hgb 9.9 L (10.1-14.3) gm/dl Hct 30.2 L (30.3-42.9) % Laboratory Tests 11/07/17 11/07/17 11/08/17 10:10 10:10 13:30 WBC 7.5 RBC 4.87 Hgb 10.3 Hct 31.8 MCV 65 L MCH 21 L MCHC 32 RDW 20.6 H Plt Count 330 Lymph % (Auto) 22.4 [place] % (Auto) 4.8 Eos % (Auto) 0.9 Baso % (Auto) 1.0 Lymph # 1.7 [place] # 0.4 Eos # 0.1 Baso # 0.1 Seg Neutrophils % 70.9 H Seg Neutrophils # 5.3 HCG, Qual Negative Blood Type B POSITIVE Antibody Screen Negative 11/09/17 04:30 WBC RBC Hgb 9.9 L Hct 30.2 L MCV MCH MCHC RDW Plt Count Lymph % (Auto) [place] % (Auto) Eos % (Auto) Baso % (Auto) Lymph # [place] # Eos # Baso # Seg Neutrophils % Seg Neutrophils # HCG, Qual Blood Type Antibody Screen
[2017-11-09] MEDS: COLACE PO SCH (09:08)
--- NOTE | 2017-11-09 09:26 | Discharge Summary ---
Providers - Providers Date of Admission: 11/08/17 15:50 Date of discharge: 11/09/17 Attending physician: CRISTELA LOWRY Primary care physician: CRISTIANA MARTIN Hospitalization Reason for admission: other (Symptomatic uterine fibroids; Menorrhagia) Procedure: other (s/p Robotic Assisted Total Hysterectomy with Bilateral Salpingectomy) Episiotomy: none Laceration: none Incision: normal, dry, intact Other procedures: none complications: none Discharge diagnosis: other (s/p RATH) Hospital course: Pt is a 37yo BF G0 LMP 10/10/17 who presented for surgical evaluation and treatment of uterine fibroids. She had a previous myomectomy, but still complained of prolonged heavy vaginal bleeding despite hormonal and surgical therapy. She did NOT desire fertility and so underwent an uncomplicated Robotic Assisted Total Hysterectomy with Bilateral Salpingectomy. By POD #1 she was tolerating a reg diet without nausea or vomiting, ambulating and voiding without difficulty, and therefore was discharged to home in stable condition. Condition at discharge: Good Disposition: DC-01 TO HOME OR SELFCARE - Discharge Diagnoses (1) Uterine fibroid Status: Resolved Qualifiers: Uterine leiomyoma location: intramural and submucous Qualified Code(s): D25.1 - Intramural leiomyoma of uterus; D25.0 - Submucous leiomyoma of uterus (2) Menorrhagia with irregular cycle Status: Resolved Plan - Discharge Medications Prescriptions: Ferrous Sulfate [Feosol 325 MG tab] 325 mg PO BID #60 tablet HYDROcodone/APAP 5-325 [[place] 5-325 mg TAB] 1 each PO Q6HR PRN #30 tablet PRN Reason: Pain, Moderate (4-6) Ibuprofen [Motrin] 800 mg PO Q8HR PRN #30 tablet PRN Reason: Pain, Mild (1-3) - Provider Discharge Summary Activity: routine, no sex for 6 weeks, no heavy lifting 4 weeks, no strenuous exercise Diet: routine Instructions: routine Additional instructions: [] Smoking cessation referral if applicable(refer to patient education folder for contact #) [] Refer to [facility] Booklet Call your doctor immediately for: * Fever > 100.5 * Heavy vaginal bleeding ( >1 pad per hour) * Severe persistent headache * Shortness of breath * Reddened, hot, painful area to leg or breast * Drainage or odor from incision. * Keep incision clean and dry at all times and follow doctor's instructions regarding bathing/showering - Follow up plan Follow up: CRISTIANA MARTIN MD [Primary Care Provider] - 7 Days CRISTELA LOWRY MD [Staff Physician] - 14 Days Forms: C Discharge Summary
[2017-11-09 12:36] VITALS: BP 133/88
== END 2017-11-09 11:37 | disposition home or self-care (01) ==
LOC: OR 11:46 → OB 15:50
PROVIDERS: ADMIT Obstetrics & Gynecology; ATTEND Obstetrics & Gynecology
DX: N92.1 Excessive and frequent menstruation with irregular cycle (principal); D25.0 Submucous leiomyoma of uterus; D25.1 Intramural leiomyoma of uterus; K21.9 Gastro-esophageal reflux disease without esophagitis; D57.1 Sickle-cell disease without crisis; F17.290 Nicotine dependence, other tobacco product, uncomplicated; Z72.89 Other problems related to lifestyle
CPT/HCPCS: 36415; 58571; 84703; 85014; 85018; 85025; 86850; 86900; 86901; 88307; 96365; 96366; 96375; 96376; A4217; C1765; C9250; G0378; J0330; J0690; J1100; J1170; J1885; J2250; J2270; J2405; J2704; J2710; J2765; J3010; J7120; J7121; S2900

== ENCOUNTER 2020-06-11 15:19 | Emergency (ER) | payer OTHER ==
--- NOTE | 2020-06-11 17:56 | Event Note ---
ED Screening Note Date of service: 06/11/20 Time: 17:53 ED Screening Note: Pt complains of right sided headache/posterior eye pain x 3 days and bilateral hand and feet numbness and tingling x 3 weeks denies past medical hx BP noted to be 171/111 states she's had some stuttering over the passed 2 days, but denies memory loss, confusion, or difficulty with ambulation denies head trauma This initial assessment/diagnostic orders/clinical plan/treatment(s) is/are subject to change based on patients health status, clinical progression and re- assessment by fellow clinical providers in the ED. Further treatment and workup at subsequent clinical providers discretion. Patient/guardian urged not to elope from the ED as their condition may be serious if not clinically assessed and managed. Initial orders include: labs
[2020-06-11 17:59] LABS: Basophils % (Auto) 0.6 % (0.0-1.8); Eosinophils % (Auto) 0.4 % (0.0-4.3); Hematocrit 40.6 % (30.3-42.9); Lymphocytes # (Auto) 0.8 K/mm3 (1.2-5.4); Lymphocytes % (Auto) 19.6 % (13.4-35.0); Mean Corpuscular HGB Conc 34 % (30-34); Mean Corpuscular Volume 93 fl (79-97); Monocytes # (Auto) 0.4 K/mm3 (0.0-0.8); Monocytes % (Auto) 9.3 % (0.0-7.3); Platelet Count 167 K/mm3 (140-440); Red Blood Count 4.36 M/mm3 (3.65-5.03); Red Cell Distribution Width 13.2 % (13.2-15.2)
[2020-06-11 18:12] LABS: Alanine Aminotransferase 37 units/L (7-56); Albumin 4.7 g/dL (3.9-5); Blood Urea Nitrogen 8 mg/dL (7-17); Calcium 8.7 mg/dL (8.4-10.2); Hemolysis Index 11
[2020-06-11 18:18] LABS: BUN/Creatinine Ratio 16
[2020-06-11 20:20] LABS: HCG Qualitative,Urine Negative (Negative)
[2020-06-11] MEDS ORDERED: POTASSIUM CHLORIDE ER 20 MEQ TAB PO ONE (20:21)
[2020-06-11] MEDS ORDERED: MAGNESIUM SULFATE 2 GM/50 ML BAG IV ONE (21:26)
[2020-06-11] MEDS ORDERED: cloNIDine 0.2 MG TAB PO ONE (21:41)
[2020-06-11 23:08] VITALS: BP 136/95
--- NOTE | 2020-06-13 10:43 | Electrocardiograph Report ---
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
== END 2020-06-11 23:09 | disposition home or self-care (01) ==
LOC: ED 15:19
DX: R51.9 Headache, unspecified (principal); R20.0 Anesthesia of skin; R20.2 Paresthesia of skin
CPT/HCPCS: 36415; 80053; 81025; 83735; 85025; 93005; 96365; 99284; J3475

== ENCOUNTER 2020-10-18 19:16 | Emergency (ER) | payer OTHER ==
[2020-10-18] MEDS ORDERED: BUTALB/ACETAMINOPHEN/CAFFEINE TAB PO ONE (23:28)
[2020-10-18] MEDS ORDERED: IBUPROFEN 600 MG TAB PO ONE (23:28)
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
[2020-10-19 01:18] VITALS: BP 156/110
== END 2020-10-19 01:00 | disposition home or self-care (01) ==
LOC: ED 19:16
DX: S00.03XA Contusion of scalp, initial encounter (principal); G44.309 Post-traumatic headache, unspecified, not intractable; F17.200 Nicotine dependence, unspecified, uncomplicated; K21.9 Gastro-esophageal reflux disease without esophagitis; Z90.710 Acquired absence of both cervix and uterus; Z86.2 Personal history of diseases of the blood and blood-forming organs and certain disorders involving the immune mechanism; Y04.8XXA Assault by other bodily force, initial encounter; Y93.89 Activity, other specified; Y92.89 Other specified places as the place of occurrence of the external cause; Y99.8 Other external cause status
CPT/HCPCS: 70450; 99283